=== PATIENT | female | born 2000 ===

== ENCOUNTER 2021-03-04 00:39 | Emergency (ER) | payer SELFPAY ==
[~2021-03-04] VITALS: Ht 175.3 cm; Wt 57.0 kg
[2021-03-04 00:45] VITALS: BP 108/74
== END 2021-03-04 02:21 | disposition left against medical advice (07) ==
LOC: ED 01:00
DX: R51.9 Headache, unspecified (principal); Z53.21 Procedure and treatment not carried out due to patient leaving prior to being seen by health care provider